=== PATIENT | female | born 1985 | race Hispanic/Latino ===

== ENCOUNTER 2017-10-10 15:19 | Outpatient (CLI) | payer OTHER ==
--- NOTE | 2017-10-10 16:59 | MRI ---
RIGHT KNEE MRI WITHOUT IV CONTRAST: 10/10/17 HISTORY: 32-year-old female with history of internal derangement of right knee, right knee pain for 1.5 years. Multiplanar, multisequence MRI examination of the right knee is performed. No abnormal joint effusion . There is some focal medial patellar facet chondromalacia with a full thickness fissure. Medial and lateral compartment cartilage appears intact. There is some slight indistinction of the posterior rita t of the medial meniscus, possibly a small subsurface tear or some minimal focal fraying. The lateral meniscus is unremarkable. The anterior and posterior cruciate ligaments, collateral ligament complex es, and quadriceps and patellar tendons are intact. No acute osteochondral defect. No significant abn ormal marrow signal. IMPRESSION: Focal full thickness fissure involving the medial patellar facet cartilage, evidence for some chondro malacia patella. Slight indistinction of the posterior root of the medial meniscus, possibly a small subsurface tear or minimal focal fraying. No evidence for other significant acute internal derangemen t. POS: [facility]
== END 2017-10-10 15:20 | disposition home or self-care (01) ==
LOC: TBSIIMAG 15:19
PROVIDERS: ATTEND Family Medicine
DX: M23.91 Unspecified internal derangement of right knee (principal); M22.41 Chondromalacia patellae, right knee

== ENCOUNTER 2017-11-10 23:42 | Emergency (ER) | payer OTHER ==
[2017-11-11] MEDS ORDERED: Ketorolac Tromethamine 30 MG/ML VIAL ONE (04:50)
--- NOTE | 2017-11-11 10:23 | RAD ---
FOUR VIEWS RIGHT KNEE: DATE: 11/11/17. HISTORY: Fell and landed on right side. Joint pain. Pain along the right side. FINDINGS: There is no evidence of a fracture, dislocation, or other osseous abnormality involving the right kne e. IMPRESSION: No acute osseous abnormality. POS: [facility]
== END 2017-11-11 05:50 | disposition home or self-care (01) ==
LOC: ERS 23:42
DX: G89.29 Other chronic pain (principal); M25.561 Pain in right knee; W19.XXXA Unspecified fall, initial encounter; Z79.899 Other long term (current) drug therapy
CPT/HCPCS: 96372; J1885

== ENCOUNTER 2017-11-13 15:17 | Outpatient (CLI) | payer OTHER ==
--- NOTE | 2017-11-13 17:59 | MRI ---
LUMBAR SPINE MRI WITHOUT CONTRAST 11/13/17 COMPARISON: None. HISTORY: Right hip pain radiating into the foot, lumbar radicular pain. TECHNIQUE: Multiplanar and multisequence MRI imaging of the lumbar spine is provided without contrast media. FINDINGS: The sagittal STIR imaging demonstrates no focal areas of osseous marrow edema. There is small volume free fluid in the right hemipelvis. On the basis of five lumbar type vertebral bodies, conus medullar is terminates at T12-L1. T12-L1: Intervertebral disc height and signal intensity appears within normal limits. No significant central canal and neural foraminal stenosis. L1-2: Intervertebral disc height and signal intensity appears within normal limits with no significan t central canal or neural foraminal stenosis. L2-3: Intervertebral disc height and signal intensity appears within normal limits. No significant ce ntral canal or neural foraminal stenosis. L3-4: Intervertebral disc height and signal intensity appears within normal limits. No significant ce ntral canal or neural foraminal stenosis. L4-5: Intervertebral disc height and signal intensity appears within normal limits. No significant ce ntral canal or neural foraminal stenosis. L5-S1: Intervertebral disc height and signal intensity appears within normal limits. No significant c entral canal or neural foraminal stenosis. The imaged retroperitoneal structures appear grossly unremarkable. IMPRESSION: No significant central canal or neural foraminal stenosis. POS: [facility]
== END 2017-11-13 15:18 | disposition home or self-care (01) ==
LOC: TBSIIMAG 15:17
PROVIDERS: ATTEND Orthopaedic Surgery
DX: M54.16 Radiculopathy, lumbar region (principal)
CPT/HCPCS: 72148

== ENCOUNTER 2019-06-01 22:05 | Emergency (ER) | payer OTHER | END 2019-06-02 00:11 | disposition left against medical advice (07) | LOC: ERS 22:05 | DX: Z53.21 Procedure and treatment not carried out due to patient leaving prior to being seen by health care provider (principal) ==

== ENCOUNTER 2019-09-18 08:22 | Emergency (ER) | payer SELFPAY ==
[2019-09-18] MEDS ORDERED: HYDROcodone/Acetaminophen 10/325 mg Tablet ONE (08:44)
== END 2019-09-18 09:03 | disposition home or self-care (01) ==
LOC: ERS 08:22
DX: S46.001A Unspecified injury of muscle(s) and tendon(s) of the rotator cuff of right shoulder, initial encounter (principal); Z87.891 Personal history of nicotine dependence; X50.1XXA Overexertion from prolonged static or awkward postures, initial encounter
CPT/HCPCS: 99283

== ENCOUNTER 2019-09-23 18:23 | Emergency (ER) | payer SELFPAY | END 2019-09-23 19:50 | disposition home or self-care (01) | LOC: ERS 18:23 | DX: G89.29 Other chronic pain (principal); M25.511 Pain in right shoulder; R20.2 Paresthesia of skin; Z87.891 Personal history of nicotine dependence | CPT/HCPCS: 99281 ==

== ENCOUNTER 2019-10-06 13:37 | Outpatient (CLI) | payer OTHER ==
--- NOTE | 2019-10-06 15:35 | MRI ---
Exam: MRI cervical spine without contrast HISTORY: Cervical radicular pain.. COMPARISON: None FINDINGS: Stable straightening of cervical lordosis. Appropriate T1 marrow signal intensity of the cervical ve rtebra. Cervical spine vertebral body heights are maintained. No fracture No significant STIR hyperintensity suggest vertebral body edema or ligamentous injury. Visualized brain parenchyma, cervicomedullary junction, cervical cord and the upper thoracic cord hav e a normal size and signal intensity C2-C3: No significant central canal stenosis or significant neural foraminal narrowing C3-C4: Broad-based disc bulge minimally contacts the thecal sac. Subarachnoid space is maintained. No significant central canal stenosis. Neural foramina are patent C4-C5: Adequate disc hydration. Central disc herniation effaces the subarachnoid space. Mass effect u becky the cervical cord. Stable mild central canal stenosis. Neural foramina are patent C5-C6: Broad-based disc bulge abuts the thecal sac. No significant central canal stenosis. Right neur al foramen is patent. Moderate left foraminal narrowing due to uncovertebral hypertrophy, unchanged C6-C7: Central and right paracentral disc herniations, unchanged from the previous exam. Stable mass effect upon the central and right aspect of the cervical cord. Stable severe stenosis of the right subarticular region. No cord signal abnormality. Moderate right and left neural foraminal narrowing C7-T1: No significant central canal stenosis or significant neural foraminal narrowing IMPRESSION: Essentially stable degenerative changes of the cervical spine.
== END 2019-10-06 13:38 | disposition home or self-care (01) ==
LOC: BICMRI 13:37
PROVIDERS: ATTEND Orthopaedic Surgery
DX: M47.22 Other spondylosis with radiculopathy, cervical region (principal)
CPT/HCPCS: 72141